=== PATIENT | male | born 2000 | race Caucasian/White ===

== ENCOUNTER 2024-10-15 15:40 | Emergency (ER) | payer OTHER, BC, SELFPAY ==
[2024-10-15 15:54] VITALS: BP 121/88; PULSE 114; RESP 16; TEMP 36.9; O2SAT 100
--- NOTE | 2024-10-15 16:00 | ED_ITS ---
HPI - Head Injury General Chief complaint: Head Injury Stated complaint: HEAD INJURY Time Seen by Provider: 10/15/24 16:00 Source: patient, RN notes reviewed and old records reviewed Mode of arrival: ambulatory Limitations: no limitations History of Present Illness HPI Narrative: 24 year old male accompanied by samuel presents to [facility] care with complaints of falling out of porch like swing and hitting his head on the rocks in the occipital area with some tenderness noted on palpation to area around 1400 today.. Patient reports that he does not recall any events of falling out of the swing or any events from yesterday or earlier today. His fiance says he seemed disoriented when he stood up after falling. She reports that she doesn't think he had any LOC but unsure, patient is not on any anticoagulants. Patient states some headache pain denies any nausea or known vomiting, alert and oriented X3 but recalls Biden as President.Patient has superficial abrasions to bilateral upper arms from his fall MD Complaint: head injury Onset (ago): hour(s) (2 hours) Arrival Conditions: other (ambulatory) Place: outdoors Loss of Consciousness: unsure Location of injury: occipital (head) Severity: moderate Associated symptoms: amnesia and other (forgetful, headache ) Related Data Home Medications ?Medication ?Instructions ?Recorded ?Confirmed ?Last Taken ?Type No Home Medications 10/15/24 10/15/24 Unknown History Allergies Allergy/AdvReac Type Severity Reaction Status Date / Time No Known Allergies Allergy Verified 10/15/24 15:55 Review of Systems Review of Systems: CONSTITUTIONAL: Denies fever, chills, or sweats. EYES: Denies visual changes, redness, or discharge. ENT: Denies rhinorrhea, congestion, sore throat, or otalgia. CARDIOVASCULAR: Denies chest pain, palpitations, or edema. RESPIRATORY: Denies cough or dyspnea. GASTROINTESTINAL: Denies abdominal pain, nausea, vomiting, or diarrhea. GENITOURINARY: Denies dysuria or hematuria. SKIN: Denies rash or itching. abrasions to bilateral upper arms from fall MUSCULOSKELETAL: Denies back pain, joint pain, or myalgia. NEUROLOGIC: states headache back of head, no numbness, or weakness. PSYCHIATRIC: Denies anxiety or depression. All systems reviewed & are unremarkable except as noted in HPI and below [facility] Social History Social History (Updated 10/15/24 @ 17:44 by Fior Lu NP) Smoking status: Never smoker Alcohol intake: current Alcohol use details: social Substance use type: does not use Gender identity (if verbalized by the patient): Male Comments At time of signature, agree with nursing past medical, surgical, social and family history. There is no relevant family history pertinent to the presenting complaint Exam Narrative: GENERAL: Well-appearing, well-nourished, and in no acute distress. HEAD: Normocephalic, atraumatic some tenderness on palpation to occipital area on back of scalp, moves al extremities well. EYES: PERRLA and EOMI. no nystagmus ENT: Nares clear, no rhinorrhea or epistaxis. Mucous membranes moist. NECK: Supple. no lymphadenopathy CHEST: Clear to auscultation. No respiratory distress. no cough noted SAO2 100% on room air HEART: Regular rate and rhythm. No murmur heard. Normal peripheral pulses. ABDOMEN: Soft, nontender, nondistended, normal active bowel sounds. EXTREMITIES: Normal range of motion. No edema. SKIN: Warm, dry, no rash. NEURO: No focal deficits. Alert and oriented x3 can't recall events of yesterday or today, does not recall falling out of swing and hitting head, Appears alert and oriented except for stating Biden as president..cranial nerves intact with no deficit noted. Course Course Emergency Course: Patient is aware of diagnosis, understands and agrees to treatment plan.? Anticipatory guidance given.? Patient agrees to follow-up as directed and is aware of reasons to seek care at the emergency department. Portions of this record may have been created with voice recognition software Level of Care: Express Care Visit Vital Signs Vital signs: Vital Signs Temperature 36.9 C 10/15/24 15:54 Pulse Rate 114 H 10/15/24 15:54 Respiratory Rate 16 10/15/24 15:54 Blood Pressure 121/88 10/15/24 15:54 Pulse Oximetry 100 10/15/24 15:54 Temperature 36.9 C 10/15/24 15:54 Pulse Rate 114 H 10/15/24 15:54 Respiratory Rate 16 10/15/24 15:54 Blood Pressure 121/88 10/15/24 15:54 Pulse Oximetry 100 10/15/24 15:54 Reviewed Transfer Transfered to: [place] Transportation: Other (private car) Transfer rationale: head injury with stated amnesia Accepting physician: Mathew Transfer comments: transfer per private car MDM - Head Injury MDM Narrative Medical decision making narrative: [id number] call placed to ED and spoke with Jeri CINTRON with condition update, VS and PMH reviewed with Dr Carmona accepting for transfer. Differential Diagnosis Differential diagnosis: Likely concussion without loss of consciousness, closed head injury, postconcussion syndrome and other (memory loss with headache) Medical Records Attestation: I reviewed the patient's medical records. 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
== END 2024-10-15 16:07 | disposition short-term general hospital (02) ==
PROVIDERS: Emergency Provider Registered Nurse
DX: S09.90XA Unspecified injury of head, initial encounter (principal); W17.89XA Other fall from one level to another, initial encounter
CPT/HCPCS: 99213; G0463

== ENCOUNTER 2024-10-15 16:21 | Emergency (ER) | payer BC, SELFPAY ==
--- NOTE | ~2024-10-15 | CT_ITS ---
Small bowel dilatation CT brain wo con Ordering provider: Joana Jaimes PA-C History: 24 years Male with . head injury . Comparison: None. Technique: CT of the head without contrast. Radiation reduction technique utilized. The dose-length product was 605.33 mGy-cm. FINDINGS: BRAIN PARENCHYMA AND CSF SPACES: No midline shift, mass effect or hemorrhage. The brain parenchyma a nd CSF spaces are otherwise normal. VISUALIZED PARANASAL SINUSES: Left maxillary sinus disease. Right ethmoid sinus disease. MASTOIDS: Well aerated. BONES: The bones appear intact. SOFT TISSUES: Visualized nasopharynx is normal. Superficial soft tissues are normal. IMPRESSION: No acute intracranial findings. Reviewed, dictated and finalized at location A.
--- NOTE | ~2024-10-15 | CT_ITS ---
CT cervical spine wo con Ordering provider: Joana Jaimes PA-C History: . head injury . Comparison: None. Technique: CT of the cervical spine was performed without contrast. Sagittal and coronal reformatted images were also obtained and reviewed. Automated exposure control and iterative reconstruction pipo hnique were employed. The dose-length product was 466.25 mGy-cm. FINDINGS: VERTEBRAE: No subluxation or acute fracture. The occipital condyles are intact. Bifid posterior arch of C1 is noted. DISC SPACES: Normal. PARASPINOUS SOFT TISSUES: Normal. IMPRESSION: No acute osseous abnormality cervical spine. Reviewed, dictated and finalized at location A.
--- OUTSIDE RECORDS SUMMARY | 2024-10-15 16:23 | XMS_ITS | Continuity of Care Document ---
Author Name [employer] Organization [employer] Care Team Providers Care Dye Jig Operator Name Role Phone [employer] Unavailable Unavailable Problems Combined list of problems from Department of Defense and Veterans Affairs facilities. It does not include entries that were removed or entered in error. 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 It does not include entries that were removed or entered in error. Substance Category Reaction Severity Reaction type Status Date Reported Comments Source No Known Allergies Drug allergy (disorder) active 10/20/2017 [place] [address] Immunizations Combined list of available immunizations from the Department of Defense and Veterans Affairs facilities. Immunization Series Date Given Administered By Site Reaction Lot Number CVX Code Drug Straw Hat Brusher Status Comments Source Influenza, injectable, quadrivalent, preservative free 0 2021 [id number] SmithKline (SKB) complet ed Influenza , injectabl e, quadrival ent, preservat latasha free [facility] influenza, injectable, quadrivalent- pf 2020 [id number] 150 sanofi pasteur complet ed influenza , injectabl e, quadrival ent-pf 04/26/21 Given Ambulat ory Pharmac y Influenza, injectable, quadrivalent, preservative free 1 2020 [id number] 150 Sanofi Pasteur (PMC) complet ed Influenza , injectabl e, quadrival ent, preservat latasha free [facility] COVID Vaccine Moderna 2020 [id number] complet ed COVID Vaccine Moderna 09/03/20 Given Ambulat ory Pharmac y SARS-COV-2 (COVID-19) vaccine, mRNA, spike protein, LNP, preservative free, 100 mcg or 50 mcg dose 2 2020 [id number] 207 Moderna [employer] (MOD) complet ed SARS-COV- 2 (COVID-19 ) vaccine, mRNA, spike protein, LNP, preservat latasha free, 100 mcg or 50 mcg dose DoD COVID Vaccine Moderna 2020 zzLef t Arm [id number] complet ed COVID Vaccine Moderna 08/06/20 Given Ambulat ory Pharmac y SARS-COV-2 (COVID-19) vaccine, mRNA, spike protein, LNP, preservative free, 100 mcg or 50 mcg dose 1 2020 LIZBETH JEANICA [id number] 207 Moderna [employer], [place]. (MOD) complet ed SARS-COV- 2 (COVID-19 ) vaccine, mRNA, spike protein, LNP, preservat latasha free, 100 mcg or 50 mcg dose DoD influenza virus vaccine, inactivated 2019 [id number] Seqirus complet ed influenza virus vaccine, inactivat ed 03/28/20 Given Ambulat ory Pharmac y Influenza, injectable, Madin Teena Canine Kidney, quadrivalent with preservative 0 2019 [id number] 186 Seqirus (SEQ) comple t ed Influenza , injectabl e, Madin Teena Canine Kidney, quadrival ent with preservat latasha DoD anthrax vaccine 2019 [id number] Emergent Biosolutions complet ed anthrax vaccine 12/06/19 Given Ambulat ory Pharmac y Human Papillomaviru s 9-valent vaccine 2019 [id number] 165 Merck & Company Inc complet ed Human Papilloma virus 9-valent vaccine 12/06/19 Given Ambulat ory Pharmac y anthrax vaccine 2 2019 [id number] 24 Emergent [employer] [place] ([facility]) complet ed anthrax vaccine DoD Human Papillomaviru s 9-valent vaccine 1 2019 [id number] 165 Merck (MSD) complet ed Human Papilloma virus 9-valent vaccine DoD typhoid Vi capsular polysaccharid e vac 2019 [id number] 101 sanofi pasteur complet ed typhoid Vi capsular polysacch aride vac 10/27/19 Given Ambulat ory Pharmac y anthrax vaccine 2019 [id number] 24 Emergent Biosolutions complet ed anthrax vaccine 10/27/19 Given Ambulat ory Pharmac y anthrax vaccine 1 2019 [id number] 24 Emergent [employer] [place] ([facility]) complet ed anthrax vaccine DoD typhoid Vi capsular polysaccharid e vaccine 1 2019 [id number] 101 Sanofi Pasteur (PMC) complet ed typhoid Vi capsular polysacch aride vaccine DoD influenza, injectable, quadrivalent 2018 [id number] 158 Seqirus complet ed influenza , injectabl e, quadrival ent 01/27/19 Given Ambulat ory Pharmac y hepatitis B pediatric/ado lescent 2018 [id number] 08 GlaxoSmithKli ne complet ed hepatitis B pediatric /adolesce nt 01/27/19 Given Ambulat ory Pharmac y hepatitis B vaccine, pediatric or pediatric/ado lescent dosage 3 2018 [id number] 08 SmithKline (SKB) complet ed hepatitis B vaccine, pediatric or pediatric /adolesce nt dosage DoD influenza, injectable, quadrivalent, contains preservative 1 2018 [id number] 158 Seqirus (SEQ) complet ed influenza , injectabl e, quadrival ent, contains preservat latasha DoD hepatitis B pediatric/ado lescent 2017 [id number] 08 GlaxoSmithKli ne complet ed hepatitis B pediatric /adolesce nt 11/28/17 Given Ambulat ory Pharmac y hepatitis B vaccine, pediatric or pediatric/ado lescent dosage 1 2017 [id number] 08 SmithKline (SKB) complet ed hepatitis B vaccine, pediatric or pediatric /adolesce nt dosage DoD hepatitis B pediatric/ado lescent 2017 [id number] 08 GlaxoSmithKli ne complet ed hepatitis B pediatric /adolesce nt 10/19/17 Given Ambulat ory Pharmac y hepatitis B vaccine, pediatric or pediatric/ado lescent dosage 1 2017 [id number] 08 SmithKline (SKB) complet ed hepatitis B vaccine, pediatric or pediatric /adolesce nt dosage DoD poliovirus vaccine, inactivated 2017 [id number] 10 sanofi pasteur complet ed polioviru s vaccine, inactivat ed 10/13/17 Given Ambulat ory Pharmac y adenovirus vaccine, live 2017 [id number] 143 Teva Pharmaceutica ls complet ed adenoviru s vaccine, live 10/13/17 Given Ambulat ory Pharmac y meningococcal A,C,Y,W-135 (MCV4P) 2017 [id number] 114 sanofi pasteur complet ed meningoco ccal A,C,Y,W-1 35 (MCV4P) 10/13/17 Given Ambulat ory Pharmac y tetanus, diphtheria, acellular pertu is 2017 [id number] 115 Diversied Arts And EntertainmentKli nj complet ed tetanus, diphtheri a, acellular pertussis 10/13/17 Given Ambulat ory Pharmac y influenza virus vaccine, inactivated 2017 [id number] 88 Seqirus complet ed influenza virus vaccine, inactivat ed 10/13/17 Given Ambulat ory Pharmac y poliovirus vaccine, inactivated 1 2017 [id number] 10 Sanofi Pasteur (PMC) complet ed polioviru s vaccine, inactivat ed DoD meningococcal polysaccharid e (groups A, C, Y and W-135) diphtheria toxoid conjugate vaccine (MCV4P) 1 2017 [id number] 114 Sanofi Pasteur (PMC) complet ed meningoco ccal polysacch aride (groups A, C, Y and W-135) diphtheri a toxoid conjugate vaccine (MCV4P) DoD tetanus toxoid, reduced diphtheria toxoid, and acellular pertu is vaccine, adsorbed 1 2017 [id number] 115 Tactile Systems Technology (SKB) complet ed tetanus toxoid, reduced diphtheri a toxoid, and acellular pertussis vaccine, adsorbed DoD Adenovirus, type 4 and type 7, live, oral 1 2017 [id number] [place] [address] ([facility]) complet ed Adenoviru s, type 4 and type 7, live, oral DoD Influenza, injectable, Madin Teena Canine Kidney, quadrivalent with preservative 1 2017 [id number] 186 Seqirus (SEQ) comple t ed Influenza , injectabl e, Madin Ralston Canine Kidney, quadrival ent with preservat latasha DoD measles virus vaccine 0 2017 05 () Not Given measles virus vaccine DoD rubella virus vaccine 0 2017 06 () Not Given rubella virus vaccine DoD mumps virus vaccine 0 2017 07 () Not Given mumps virus vaccine DoD varicella virus vaccine 0 2017 21 () Not Given varicella virus vaccine DoD hepatitis A vaccine, adult dosage 0 2017 52 () Not Given hepatitis A vaccine, adult dosage DoD Results Combined list of recent chemistry, hematology and other laboratory results from Department of Defense and Veterans Affairs, ranging from 15 months to all on record, depending upon the facility. Order Name Results Value Reference Range Date Interpretation Specimen Comments Source Infectiou s Disease HIV-1/O/2 Non-Reac tive 1 (07/21/24 9:39 AM) 07/21 N Interpretiv e Data: INTERPRETAT ION: This method is a screening procedure for the detection of HIV p24 Antigen and Antibodies to HIV-1, including Group O, and/or HIV-2. NON-REACTIV E: HIV-1 antigen and HIV-1 / HIV-2 antibodies were not detected. No laboratory evidence of HIV infection. A negative test result does not exclude the possibility of exposure to or infection with HIV. HIV antibodies and/or p24 antigen may be undetectabl e in some stages of the infection and in some clinical conditions. If acute HIV infection is suspected, consider submitting another specimen to a reference laboratory for HIV-1 RNA. SCREEN REACTIVE - CONFIRMATIO N TO FOLLOW: Possible presence of HIV-1antibo dies, HIV-2 antibodies and/or HIV-1 p24 antigen. Specimen will reflex to the confirmatio n testing that fulfills the Center for Disease Control and Prevention' s HIV diagnostic algorithm. Refer to [facility] Lab Guide for additional information : [email or web address] x Testing performed by [employer] r[facility] kwok. [facility] EP[facility] Miscellan eous Sendouts Repository Sample Received (07/21/24 9:39 AM) 07/21 N [facility] Encounters Combined list of: 1) Encounters from Department of Veterans Affairs facilities going backup to the last 18 months, not all VA inpatient encounters are included; 2) Encounters from the Department of Defense facilities going backup to 280 months. Location Location Details Encounter Type Encounter Number Reason For Visit Attending Provider ADM Date DC Date Status Disposition [place] [address](Hea ring Conservat ion, BMT) OUTPATIENT [id number] ANNY SHELTON E 10/18 Released w/o Limitations [facility] [place] [address](H earing Conserv ation, BMT) [place] [address](Tra [facility]) OUTPATIENT [id number] Notes Entered by: Rachael CADENA 20 Oct 2017 1052 ------- ------- ------- ------- -- Strep Prophyl RL Gonzalez 10/20 Released w/o Limitations [facility] [place] [address](T [facility]) OUTPATIENT [id number] Initial PHA LIVAN BRITO 04/28 Released w/o Limitations [address] [place] [address])([facility]) [address] [place] [address])([facility]) OUTPATIENT [id number] Notes Entered by: HO BLAND 27 Oct 2019 1455 ------- ------- ------- ------- -- HO GROVES 10/26 Released w/o Limitations [address] [place] [address])([facility]) [address] [place] [address])(Yi demic Virus) OUTPATIENT [id number] SATHYA WILSON 12/27 Released w/o Limitations [address] [place] [address])(P andemic Virus) Theater Facility OUTPATIENT [id number] Theater Provider 02/25 Released w/o Limitations [facility] OUTPATIENT [id number] Theater Provider 02/25 Released w/o Limitations Theater [facility] Theater [facility] OUTPATIENT [id number] Theater Provider 04/23 Released w/o Limitations Theater Facilit y [address] [place] [address])([facility]) TELE CONSULT [id number] Notes Entered by: MARLO JEAN 14 May 2020 1235 ------- ------- ------- ------- -- FRANK Fields 05/14 Other Not Elsewhere Classified [address] [place] [address])([facility]) [address] [place] [address])(Aud iology Procedure s) OUTPATIENT [id number] Notes Entered by: Jennie LANDAVERDE 28 May 2020 0910 ------- ------- ------- ------- -- ARLEY EVANS 05/28 Released w/o Limitations [address] [place] [address])(A udiolog y Procedu res) [address] [place] [address])(War rior Op Med Cln Tm A Ad) OUTPATIENT [id number] SHPE [id number] EBONY ASHER 06/03 Released w/o Limitations [address] [place] [address])(W arrior Op Med Cln Tm A Ad) [address] [place] [address])([facility]) OUTPATIENT [id number] Notes Entered by: Elias MAHARAJ 06 Aug 2020 1038 ------- ------- ------- ------- -- HECTOR Tenorio 08/06 Released w/o Limitations [address] [place] [address])([facility]) [address] [place] [address])([facility]) OUTPATIENT [id number] Notes Entered by: Elias MAHARAJ 11 Aug 2020 1112 ------- ------- ------- ------- -- phaq and HECTOR Tenorio 08/11 Released w/o Limitations [address] [place] [address])(06 [facility]) [address] [place] [address])([facility]) OUTPATIENT [id number] AUDIO AM - BUZZ DORADO 07/27 Released w/o Limitations [address] [place] [address] [facility]) [address] [place] [address] Alv[facility])([facility]) OUTPATIENT [id number] Notes Entered by: Elias MAHARAJ 27 Jul 2021 1721 ------- ------- ------- ------- -- HECTOR Campbell 07/27 Released w/o Limitations [address] [place] [address] Alvino [facility] ([facility]) [address] [place] [address] Alvino [facility])([facility]) OUTPATIENT [id number] Notes Entered by: Elias MAHARAJ 30 Aug 2022 1618 ------- ------- ------- ------- -- phaq HECTOR MAHARAJ 08/30 Released w/o Limitations [address] [place] [address] Alvino [facility])(06 [facility]) 8224R-126 G Outside Documentat ion Only [id number] 02/02 Discharge Disposition: Home or Self Care 8224R-1 26 MARINE 8224R-126 MDG Outside Documentat ion Only [id number] 02/02 Discharge Disposition: Home or Self Care 8224R-1 26 MARINE 8224R-126 MDG Outpatient [id number] HECTOR PHIPPS 06/12 Discharge Disposition: Home or Self Care 8224R-1 26 G 8224R-126 MDG Outpatient [id number] HECTOR PHIPPS 07/21 Discharge Disposition: Home or Self Care 8224R-1 26 G 8224R-126 MDG Clinic [id number] HECTOR PHIPPS 08/07 Discharge Disposition: Home or Self Care 8224R-1 26 MDG Procedures Combined list of: 1) Procedures from Department of Veterans Affairs facilities going back [facility] to [facility], not all VA non-surgical procedures are included; 2) All procedures from the Department of Defense facilities. Procedure Procedure Type Code Date Perfomer Comments Sourc e No data available for this section Ambulatory Pharmacy PURE TONE AUDIOMETRY (THRESHOLD), AUTOMATED; AIR ONLY 2 DoD WAIVER SERVICES; NOT OTHERWISE SPECIFIED (NOS) 1 [facility] PSYCHOLOGICAL OR NEUROPSYCHOLOGICAL TEST ADMINISTRATION, WITH SINGLE AUTOMATED, STANDARDIZED INSTRUMENT VIA ELECTRONIC PLATFORM, WITH AUTOMATED RESULT ONLY 0 DoD Social History Combined list of available smoking, tobacco, and other social history from Department of Defense and Veterans Affairs facilities. Social History Type Response Date Comment Sourc e Sex Representation Male (finding) 08/28/2021 Un known Organization Sexual Orientation Ambula tory Pharmacy Gender identity Ambulator y Pharmacy This section is an empty social history section. DoD Assessment and Plan Combined list of future care activities from Department of Defense and Veterans Affairs facilities (e.g., assessment and plan notes, appointments, orders, and referrals). Additional future care activities may be listed in the Plan of Care section. 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 Patient s PHAQ responses suggest Routine i tems requiring action. Retention Waiver: No Profile: No Medications: N one reported Medication List Active Medications No Active Medications Found Medications Inactivated in the Last 72 Hours No medications found. Allergies: No Known Allergies Does central service technician need Annual Mental Health review? YES VA Disability Rating: No If, Yes please update below. 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 Report complete. PHAQ ready for PCM review and signature. 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 Patient s PHAQ responses suggest Priority items requiring immediate action. Member is PRIORITY for f inancial, family/relationship, sleep Retention Waiver: N o Profile: N o Medications: Medication List Active Medications No Active Medications Found Medications Inactivated in the Last 72 Hours No medications found. Allergies: N o Known Allergies Does central service technician need Annual Mental Health review? N O VA Disability Rating: N o I f, Yes please update below. 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 Member is a PRIORITY for financial, family/relationship, and sleep but is not getting help for these issues. He is due to complete his MHA. 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 Member experienced persistent or recurring noises in head or ears. Member reports no surgeries since last PHA, no allergies, and does not wear corrective lenses. Member denies seeking/getting care for any mental health concerns. Member denies taking any prescribed or OTC medications, and does not drink alcohol. Member endorses taking Protein supplements, Multi-vitamins, and Vitamin D. Member endorses excellent health with no c/o pain. Will schedule member for F2F appt with Lt Col Maharaj. Left a voicemail for member to return my call. PHAQ ready for PCM review and signature. *Insert Addendum Here: Addendum by HECTOR MAHARAJ on August 10, 2023 09:41 CDT PHAQ Completed in [facility], [id number] c opied below. Diagnosis is [id number] Medication reconciliation was accomplished. IMR requirements checked in [facility] (all GREEN). General c ounseling performed i n chart review. Denies SI/HI. All questions answered. Member has no n on emergent positive responses on P MONIQUE. I t has not inhibited member from performing their duties. Member is assumed fit for duty. Denies any other acute or chronic health concerns currently. Mental health resources to include the mental health clinic, [facility]OP, Information Engineer, and One [facility] discussed with patient v ia review. Recommend f/u with PCM for any new or ongoing m edical concerns. 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 Last Name: LINDA 2. First Name: ROSITA 3. Middle Name: AZAR 4. Assessment Date: 5. : 6. Age: 23 7. Gender: M 8. DoD ID Number: [id number] 9. Service Branch: [employer] 10. 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 Unit Name: 126 [employer]INTENA[employer]CE SQ 14. Duty Station/Location: [place] 15. C: [id number] 16. Is this your first Periodic Health Assessment (PHA)?: N 17. Are you enrolled in a secure messaging system with your health care provider?: 18. Current contact information: Preferred Method: Email 1 DSN: Day Time Phone: [phone] Night Time Phone: [phone] Email 1: [email or web address] Email 2: Address: [address] City: [place] State: [place] Zip Code: [id number] 19. Point of contact who can always reach you: Name: Lexi Mixon Phone 1: [phone] Phone 2: EMAIL: Address: [address] City: [place] State: [place] Zip Code: [address] II. DEPLOYMENT INFORMATION (DEP) 1. [ 1 ] Total number of deployments in the PAST 5 YEARS 2. [ [place] ] Primary country of last deployment 3. [ ] Date departed theater 4. [ Y ] Are you going to deploy within the NEXT 120 DAYS? III. 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 [ No ] Does your specialty require an operational duty physical exam? 4. [ Yes ] Are you currently enrolled in a medical surveillance/occupational health program?: Yes IV. MEDICAL CONDITIONS (ARASH): 1. Since your last PHA, have you experienced any of the following health conditions, and if so, what is your status? [ Persistent or recurring noises in head or ears ] Conditions with no medical care [ ] Conditions with medical care, but no longer under treatment [ ] Conditions with medical care, and NOW under treatment 2. Since your last PHA, have you experienced any of the following health conditions, and if so, what is your status? [ ] Conditions with no medical care [ ] Conditions with medical care, but no longer under treatment [ ] Conditions with medical care, and NOW under treatment 3. For any condition marked YES in question 1 or 2, are you currently on any profile or limited duty for that condition? [ ] Conditions 4. [ Yes ] Have you been based or stationed at a location where an open burn pit was used? 5. [ Not Sure ] Have you been exposed to toxic airborne chemicals or other airborne contaminants? 6. [ No ] Are you enrolled in the Airborne Hazards and Open Burn Pit Registry? 7. [ Y ] Federal law requires eligible members to enroll in the Airborne Hazards and Open Burn Pit Registry or opt-out. If eligble, choose one: 8. Have you had any surgery since your last PHA?: No 10.a. [ No ] Since your last PHA, has a health care provider recommended surgery(s) that you have not had? 11.a. [ No ] Do you currently require hearing aids, special medical supplies, CPAP, adaptive equipment, assistive technology devices, and/or other special accommodations? 12.a. [ No ] Do you have a waiver or profile for any part of your Service's physical fitness test? 13.a. [ No ] Do you have any problems wearing a gas mask, ballistic helmet, body armor, and/or chemical/biological protective garments? 14.a. [ No ] Have you ever been told by a health care provider that you SHOULD NOT receive an immunization for medical reasons? 15.a. [ No ] Do you have a permanent profile or an Assignment Limitation Code C? 16.a. [ No ] Are you on a temporary profile or limited duty? 17. [ 0 ] During the PAST 2 years, how many times have you been placed on a temporary profile or on limited duty? V. INDIVIDUAL MEDICAL READINESS (IMR) 1. [ No ] Do you have any allergies? 3. [ Not required ] Do you have red medical warning dog tags? 4. [ No ] Do you wear corrective lenses? . BEHAVIORAL HEALTH (MHA) 1. a. [ financial, family/relationship, sleep financial, family/relationship, sleep ] Over the PAST MONTH, what major life stressors have you experienced that are a cause of significant concern or make it difficult for you to do your work, take care of things at home, or get along with other people (for example, serious conflicts with others, relationship problems, or a legal, disciplinary or financial problem)? 1. b. [ No ] Are you currently in treatment or getting professional help for this concern? 2. a. [ No ] In the PAST YEAR did you receive care for any mental health condition or concern such as, but not limited to post traumatic stress disorder (PTSD), depression, anxiety disorder, alcohol abuse or substance abuse? 3. [ None ] What prescription or over-the counter medications (including herbals/supplements) for sleep, pain, combat stress, or a mental health problem are you CURRENTLY taking? 4. a. [ No ] In the past 12 months, have you gambled? 5. a. [ Never ] How often do you have a drink containing alcohol? 6. Have you ever had any experience that was so frightening, horrible, or upsetting that in the PAST MONTH, you: 6. a. [ No ] Have had nightmares about it or thought about it when you did not want to? 6. b. [ No ] Tried hard not to think about it or went out of your way to avoid situations that remind you of it? 6. c. [ No ] Were constantly on guard, watchful or easily startled? 6. d. [ No ] Laie numb or detached from others, activities, or your surroundings? 6. e. [ Not answered ] Laie guilt or unable to stop blaming yourself or others for the event(s) or any problems the event(s) may have caused? 7. Over the LAST 2 WEEKS, how often have you been bothered by the following problems? 7. a. [ Not at all ] Little interest or pleasure in doing things 7. b. [ Not at all ] Feeling down, depressed, or hopeless 8. [ No ] Would you like to schedule an appointment with a health care provider to discuss any health concern(s)? 9. [ No ] Are you interested in receiving information or assistance for a stress, emotional or alcohol concern? 10. [ No ] Are you interested in receiving assistance for a family or relationship concern? 11. [ No ] Would you like to schedule a visit with a sail maker, mental health care provider, or a community support counselor? VII. FAMILY HISTORY AND LIFESTYLE (LIF) 1. [ Excellent ] Overall, how would you rate your health during the PAST MONTH? 2. [ Heart-related conditio ] Member indicates that family members have the following problems 4. 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 [ Yes ] I participate in moderate intensity physical activites at least 2.5 hours, or a combination of moderate and vigorous aerobic activites, for at least 75 minutes per week. 7. In a typical week, I do physical activities specifically designed to STRENGTHEN my muscles: [ 5 ] Day(s) per week 8. [ None ] What prescriptions or [id number] medications are you CURRENTLY taking for health problems on a ROUTINE BASIS? 9. Which of the following products have you taken since your last PHA: Protein Supplements/Creatine: Once a day Multi-Vitamins: Once a day Vitamin D: Less than once a month 11. Think about the PAST 30 DAYS. How often did you eat/drink the following foods/beverages? [ 2 servings per day ] Fruits [ 1 serving per day ] Vegetables [ 3 to 6 servings per week ] Starchy Vegetables [ 3 to 6 servings per week ] Whole Grains [ 1 or 2 servings per week ] Dairy and Calcium Containing Foods [ Rarely or Never ] Fish [ 3 or more servings per day ] Lean Protein [ Rarely or Never ] Sugar-Sweetened Beverages 12. [ No ] Have you had a cholesterol check by a health home health care respiratory therapist within the PAST 5 YEARS? 13.a. In the PAST 30 DAYS, which of the following products have you used on at least one day? None 15. Which of the following best describes your past tobacco use? I have never used tobacco products. 16. [ No ] Are you regularly exposed to secondhand smoke? 17. [ 5 to less than 7 hours ] During the LAST 2 WEEKS, how many hours of sleep did you get on most days? 18. [ No ] During the LAST 2 WEEKS, have you felt impaired or unable to adequately perform due to sleepiness or poor quality sleep? 19. [ No ] Have you had any unexplained weight loss or gain since your last PHA? 20. Member is not at risk for sexually transmitted infections. 22. Since your last PHA, what, if anything, have you and your partner used to keep from getting ? [ Condoms ] I am actively taking steps to prevent , including 23. [ No ] In the last year, have you or your partner had a scare, where you were not trying to get but were worried enough to use a home test? IX. RESERVE COMPONENT (RES) 1. [ No ] Do you have an injury, illness, Or disease which was incurred or aggravated while in a duty status since your last PHA? 4. [ Yes - ] Are you currently coverered under a health insurance policy? 5.a. [No, I have never applied for Worker's Compensation ] Do you have any current physical or mental health limitations related to a Worker's Compensation claim? 6. [ No ] Have you applied for or have you received a VA disability rating? X. OTHER MEDICAL (OTH) 1. [ 0 ] Rate the amount of pain you have had, on average, over the PAST 24 HOURS 3. [ No ] Since your last PHA, have you received care or treatment for any medical and/or mental health condition(s) from a civilian or non- facility? 5. Member acknowledged responsibility for reporting health issues. 7. [ No ] Woud you like to schedule an appointment with a health care provider to discuss any health concerns? XI. SEPARATION AND JAIL 1. 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 PART B. RECORD REVIEW AND RECOMMENDATIONS I. RECORD REVIEWER INFORMATION 1. Last Name: DARIEN 2. First Name: PRECIOUS 3. Middle Name: Kathi 4. Service Branch: [employer] 5. 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 EMAIL: [email or web address] 8. Facility: [address] [facility] 9. Unit: [facility] 10. Address: [address] [place] [address]. State: [facility]. Zip Code: [address] 13. 14. Date Record Review: II. MEDICAL SCREENING 1. [ ] Date of swat team member's most recent PHA 2. [ 5 feet 10 inches Date: ] swat team member's most recently documented height 3. [ 188 pounds Date: ] swat team member's most recently documented weight 4. [ 101/58 Date: ] swat team member's most recently documented blood pressure reading 5. [ No ] Does the swat team member have a history of abnormal blood pressure since their last PHA? 6. [ Yes ] Does the swat team member have a laboratory test of sickle cell trait documented in their permanent medical record? 7. [ No Cholesterol Test Documented ] What is the date of the swat team member's most recently documented cholesterol test? 9. [ Protein Supplements Multi-vitamins Vitamin D ] List of swat team member's active medications listed in their permanent medical record 10. [ No ] Is there a discrepancy between the active medication record review and the swat team member's self-reported list of medications? 11. [ No Outside Care Documented ] List documented significant care the swat team member has received since their last PHA from a provider OUTSIDE the Health System 12. [ No ] Is there a discrepancy between the swat team member's list of OUTSIDE care (from OT5), and the OUTSIDE care found in the record? 13. [ No Inside Care Documented ] List documented significant care the swat team member has received since their last PHA from a provider INSIDE the Health System 15. [ Not Answered ] Confirm that vaccine exemptions are listed in the medical record for each vaccine listed III. OCCUPATION-SPECIFIC EXAMINATIONS 2. [ ] When was the swat team member's most recently documented evaluation? IV. FAMILY HISTORY AND LIFESTYLE 1. [ Yes ] Does the [id number] reflect the swat team member's reported family history? . DEPLOYMENT-RELATED HEALTH ASSESSMENTS 2. [ No ] Has the swat team member completed the Pre-Deployment Health Assessment (DD Form 2795 for their upcoming deployment? VII. INDIVIDUAL MEDICAL READINESS 1. [ No ] Does the swat team member have an Assignment Limitation Code C? 3. [ Classification: 1 ] Most recently documented dental exam 4. [ Yes ] Is the swat team member current on all required immunizations in the immunization tracking system? 6. Does the swat team member have the following laboratory tests documented in their permanent medical record? [ Yes ] HIV test within the PAST 24 months [ Yes ] G6PD results on file [ Yes ] Blood type and Rh on file [ Yes ] DNA test on file IX. ADDITIONAL RECORD REVIEWER COMMENTS 1. This record review does NOT have a need for provider notification or referral.2. Additional comments about this record review that need to be forwarded to the Health Multiple Slide Operator completing PART C: PRIORITY PHAQ completed. Member is a PRIORITY for financial, family/relationship, and sleep but is not getting help for these issues. He is due to complete his MHA. 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 Member experienced persistent or recurring noises in head or ears. Member reports no surgeries since last PHA, no allergies, and does not wear corrective lenses. Member denies seeking/getting care for any mental health concerns. Member denies taking any prescribed or OTC medic Date Record Review Completed: PART C. HEALTH CARE PROVIDER I. MENTAL HEALTH ASSESSMENT (MHA) PROVIDER INFORMATION 1. Last Name: CHOCO 2. First Name: HECTOR 3. Middle Name: Albin 4. Service Branch: [employer] 5. [facility]: [facility] 6. 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 EMAIL: [email or web address] 8. Facility: [address] [facility] 9. Unit: [facility] 10. Address: [address] [place] [address] 11. State: [place] 12. Zip Code: [address] 13. Phone: [phone] 14. Date HCP Review initiated: 1. Member marked that they have a concern or a difficulty with a major life stressor: financial, family/relationship, sleep Additional info: Referral is not indicated because there is no significant impairment. 2. Address concerns identified on member questions 2 and 3. History of mental health care: N/A Member's response: Provider's comments: Medications: N/A Member's response: Provider's comments: 3. Member's AUDIT-C screening score was 0. (nothing required) 4. Member did not livan yes on two or more of questions 6a through 6e. 5. Member did not livan More than half the days or nearly every day on question 7a or 7b. 6. Suicide risk evaluation. 6. a. Ask: Over the past month, have you wished you were or wished you could go to sleep and not wake up?: No 6. b. Ask: Have you actually had any thoughts of killing yourself?: No 6. f. 1. Ask: In you lifetime, have you done anything, started to do anything, or prepared to do anything to end your life?: No 6. g. Further risk assessment comments: 7. Member states that they have not had thoughts or concerns over the past month that they might hurt or lose control with someone. 9. Summary of Provider's identified concerns needing referrals: None 11. Comments: 13. Supplemental services recommended/information provided: No supplemental services required Date MHA Certified: III. PERIODIC HEALTH ASSESSMENT (PHA) PROVIDER INFORMATION 1. Last Name: CHOCO 2. First Name: HECTOR 3. Middle Name: Albin 4. Service Branch: [employer] 5. Status: Traditional [facility] 6. 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 EMAIL: [email or web address] 8. Facility: [address] [facility] 9. Unit: [address] [facility] 10. Address: [address] [place] [address] 11. State: [place] 12. Zip Code: [address] 13. Phone: [phone] 14. Date HCP Review initiated: IV. PERIODIC HEALTH ASSESSMENT PROVIDER RECOMMENDATIONS and REFERRALS 1. Provider concerns with this assessment: No issues or concerns identified V. SUMMARY AND COMMENTS 1. Additional information summarizing findings during the swat team member assessment: 2. Provider Comments: . INDIVIDUAL MEDICAL READINESS DISPOSITION DETERMINATION ARASH: Ready DEN: Ready IMM: Ready LAB: Ready ME: Ready IMR Status: Fully Medically Ready VII. SERVICE MEDICAL DEPLOYABILITY EVALUATION INDICATED Based on your review of all documentation, is the swat team member medically deployable without limitations? Reference Rafi 6490.07 Yes (swat team member DOES NOT currently have a medical condition that limits deployability) Date PHA Completed: END OF [id number] REPORT PROVIDER: LtCol Yee, Kierra SHEARER [employer] SFS Chief, Aerospace Medicine, [facility] [place] [employer] Email: [email or web address] COMM: [phone] DSN:[id number] FAX: [phone] Extracted from:Title: PRIORITY PHAQ Author: Precious Blood Date: 07/27/23 [facility] animal laboratory technician has completed annual PHA record review on 0 07/27/2023. Patient s PHAQ responses suggest Priority items requiring immediate action. Retention Waiver: N o Profile: N o Medications: Medication List Active Medications No Active Medications Found Medications Inactivated in the Last 72 Hours No medications found. Allergies: N o Known Allergies Does central service technician need Annual Mental Health review? N O VA Disability Rating: N o I f, Yes please update below. 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 Member is a PRIORITY for financial, family/relationship, and sleep but is not getting help for these issues. He is due to complete his MHA. 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 Member experienced persistent or recurring noises in head or ears. Member reports no surgeries since last PHA, no allergies, and does not wear corrective lenses. Member denies seeking/getting care for any mental health concerns. Member denies taking any prescribed or OTC medications, and does not drink alcohol. Member endorses taking Protein supplements, Multi-vitamins, and Vitamin D. Member endorses excellent health with no c/o pain. Will schedule member for F2F appt with Lt Col Maharaj. Left a voicemail for member to return my call. PHAQ ready for PCM review and signature. 10/15/2024 [id number] [facility] Functional Status Combined list of recent functional and cognitive assessments recorded at Department of Defense and Veterans Affairs (VA).VA Functional Ragan Measurement (FIM) Scale: 1 = Total Assistance (Subject = 0% +), 2 = Maximal Assistance (Subject = 25% +), 3 = Moderate Assistance (Subject = 50% +), 4 = Minimal Assistance (Subject = 75% +), 5 = Supervision, 6 = Modified Ragan (Device), 7 = Complete Ragan (Timely, Safely). Assessment Date/Time Source Assessment Type Assessment Skill Assessment Score Assessment Details No data available for this section
[2024-10-15 16:27] VITALS: BP 132/76; PULSE 97; RESP 18; TEMP 36.3; O2SAT 100
--- NOTE | 2024-10-15 16:33 | ED_ITS ---
HPI - Head Injury General Chief complaint: Head Injury Stated complaint: Head Injury Time Seen by Provider: 10/15/24 20:39 Focused HPI: 24-year-old male presents with his fiancee for head injury that occurred around 1:00 p.m. today. Patient's fiancee at bedside assist with history. States they were at a restaurant the patient was sitting on a swing when he lost his balance and fell backwards, hit the back of his head on rocks. She does not believe he lost consciousness. He stood up fairly quickly and was immediately confused. They went to urgent care and were redirected to the emergency department. The patient states he does not recall any events surrounding hitting his head or any events earlier today. He also does not recall going to urgent care, but does remember the car ride here. He denies vision changes, focal numbness or weakness, prior head injury or concussion, neck pain, back pain, nausea or vomiting, seizure-like activity, or other injuries acquired. He is not anticoagulated. He is reporting associated dizziness after the head injury without has since resolved. GENERAL: Well-appearing, well-nourished, and in no acute distress. GCS 15 HEAD: Normocephalic. Hematoma to the posterior scalp with very superficial abrasion, no active bleeding CHEST: Clear to auscultation. ?No respiratory distress. HEART: Regular rate and rhythm.? NEURO: ?Alert and oriented x4. Cranial nerves 2-12 intact. Strength 5/5 in BUE and BLE. Sensation intact throughout. Normal [id number]. No pronator drift. Patient screened in triage and initial orders placed.? ?Additional care and disposition to be based upon?diagnostic testing and treatment. Related Data Home Medications ?Medication ?Instructions ?Recorded ?Confirmed ?Last Taken ?Type No Home Medications 10/15/24 10/15/24 Unknown History Allergies Allergy/AdvReac Type Severity Reaction Status Date / Time No Known Allergies Allergy Verified 10/15/24 15:55 [facility] Social History Social History Smoking status: Never smoker Alcohol intake: current Alcohol use details: social Substance use type: does not use Gender identity (if verbalized by the patient): Male Course Vital Signs Vital signs: Vital Signs Temperature 97.3 F L 10/15/24 16:27 Pulse Rate 97 05/26/25 16:27 Respiratory Rate 18 10/15/24 16:27 Blood Pressure 132/76 10/15/24 16:27 Pulse Oximetry 100 10/15/24 16:27 Oxygen Delivery Room Air 10/15/24 16:27 Temperature 97.6 F 10/15/24 21:01 Pulse Rate 68 10/15/24 21:01 Respiratory Rate 16 10/15/24 21:01 Blood Pressure 120/76 10/15/24 21:01 Pulse Oximetry 97 10/15/24 21:01 Oxygen Delivery Room Air 10/15/24 16:27 Discharge Plan Discharge Clinical Impression: Concussion without loss of consciousness Patient Disposition: Home Condition: Stable Instructions: Concussion (ED), Post Concussion Syndrome (ED) Additional Instructions: RETURN IF SYMPTOMS ARE WORSENING , CALL YOUR FAMILY PHYSICIAN FOR APPOINTMENT, TAKE TYLENOL, IBUPROFEN NEEDED FOR ACHES AND PAIN, CONTINUE HOME MEDICATIONS. Patient Language: Uzbek Prescriptions: No Action No Home Medications Follow-up/Referrals: PHYSICIAN,ASW/ASUW TACTICAL AIR CONTROLLER [Primary Care Provider] - Ron Forde MD [Physician] - 10/18/24 Stand Alone Forms: Work/School Release IP
[2024-10-15 18:34] VITALS: BP 129/78; PULSE 68; RESP 16; TEMP 36.4; O2SAT 100
--- NOTE | 2024-10-15 20:39 | ED_ITS ---
HPI - Head Injury General Chief complaint: Head Injury Stated complaint: Head Injury Time Seen by Provider: 10/15/24 20:39 Source: patient Mode of arrival: ambulatory Limitations: no limitations History of Present Illness HPI Narrative: 24 YEARS OLD WHITE MALE CAME TO THE ED BY PRIVATE CAR COMPLAINING OF OCCIPITAL HEADACHE AFTER FALLING OUT OF A SWING ROUGHLY 3 FEET ABOVE THE GROUND WHILE SWINGING A SITTING POSITION. HE DENIES LOSS OF CONSCIOUSNESS, UNABLE TO RECALL THE EVENT. THIS HAPPENED AT 1:00 P.M. TODAY, 1 A1C THE PATIENT WAS 8:30 P.M.. AT THIS TIME PATIENT IS AWAKE, ALERT ORIENTED X4 FEELING MORE COHERENT MORE AWAKE DENYING ANY SYMPTOMS AT THIS TIME. HE DENIES ANY FEVER, CHILLS, NAUSEA, VOMITING, NECK PAIN, BACK PAIN OR OTHER INJURIES. Related Data Home Medications ?Medication ?Instructions ?Recorded ?Confirmed ?Last Taken ?Type No Home Medications 10/15/24 10/15/24 Unknown History Allergies Allergy/AdvReac Type Severity Reaction Status Date / Time No Known Allergies Allergy Verified 10/15/24 15:55 Review of Systems Review of Systems: All systems reviewed & are unremarkable except as noted in HPI and below PMFSH Social History Social History Smoking status: Never smoker Alcohol intake: current Alcohol use details: social Substance use type: does not use Gender identity (if verbalized by the patient): Male Exam Narrative: GENERAL APPEARANCE: WELL-DEVELOPED, WELL-NOURISHED SKIN: NORMAL COLOR HEAD: NORMOCEPHALIC, NONTRAUMATIC EYES: CLEAR CONJUNCTIVA ENT: OROPHARYNX NORMAL, EARS NORMAL, NOSE NORMAL NECK: SUPPLE, NONTENDER CHEST AND RESPIRATORY: AIRWAY PATENT, NO RESPIRATORY DISTRESS, NO ACCESSORY MUSCLE USE HEART: REGULAR RATE/RHYTHM ABDOMEN: SOFT, NONTENDER, NO ORGANOMEGALY, QUIET BOWEL SOUNDS VASCULAR: NORMAL PERIPHERAL PULSES, NORMAL CAPILLARY REFILL. MUSCULOSKELETAL: NORMAL RANGE OF MOTION, NONTENDER BACK NEUROLOGIC: ALERT AND ORIENTED ?3, DEPOSITION REPORTER IS NORMAL TESTED, NO GROSS MOTOR DEFICIT Course Vital Signs Vital signs: Vital Signs Temperature 36.3 C L 10/15/24 16:27 Pulse Rate 97 10/15/24 16:27 Respiratory Rate 18 10/15/24 16:27 Blood Pressure 132/76 10/15/24 16:27 Pulse Oximetry 100 10/15/24 16:27 Oxygen Delivery Room Air 10/15/24 16:27 Temperature 36.4 C 10/15/24 18:34 Pulse Rate 68 10/15/24 18:34 Respiratory Rate 16 10/15/24 18:34 Blood Pressure 129/78 10/15/24 18:34 Pulse Oximetry 100 10/15/24 18:34 Oxygen Delivery Room Air 10/15/24 16:27 MDM - Head Injury MDM Narrative Medical decision making narrative: DIFFERENTIAL DIAGNOSIS CONCUSSION WITHOUT LOSS OF CONSCIOUSNESS, MEMORY DISORDER FOR FEW HOURS, AT THE TIME OF DISCHARGE PATIENT IS BACK TO NORMAL 100%, POST CONCUSSION SYNDROME IS MY CONCERN. CT HEAD AND CT CERVICAL SPINE WITHOUT CONTRAST SHOWED NO ACUTE ABNORMALITY. THE PT WAS DISCHARGED TO HOME.THE PT,S CONDITION UPON DISCHARGE WAS FAIR,EDUCATION WAS PROVIDED TO THE PT IN REFERENCE TO THE FINAL IMPRESSION,DISCHARGE STUDY RESULTS,TREATMENT,PROGNOSIS AND NEED FOR FOLLOW UP . Differential Diagnosis Differential diagnosis: Likely other ( ABOVE) Imaging Data Radiologist's impression: Impressions Head CT 10/15/24 17:19 IMPRESSION: No acute intracranial findings. Cervical Spine CT 10/15/24 18:27 IMPRESSION: No acute osseous abnormality cervical spine. Critical Care Time Critical Care Time Critical Care Time: No Discharge Plan Discharge Clinical Impression: Concussion without loss of consciousness Patient Disposition: Home Condition: Stable Instructions: Concussion (ED), Post Concussion Syndrome (ED) Additional Instructions: RETURN IF SYMPTOMS ARE WORSENING , CALL YOUR FAMILY PHYSICIAN FOR APPOINTMENT, TAKE TYLENOL, IBUPROFEN NEEDED FOR ACHES AND PAIN, CONTINUE HOME MEDICATIONS. Patient Language: Lao Prescriptions: No Action No Home Medications Follow-up/Referrals: PHYSICIAN,HEALTH AND SAFETY ADVISOR [Primary Care Provider] - Ron Forde MD [Physician] - 10/18/24 Stand Alone Forms: Work/School Release IP
--- OUTSIDE RECORDS SUMMARY | 2024-10-15 20:52 | XMS_ITS | Continuity of Care Document ---
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 It does not include entries that were removed or entered in error. Problem Status Onset Date Problem Type Date of Resolution Comme nts Source ASSESSMENT, POST-DEPLOYMENT, DOCUMENTED ON [id number] Inactive 04/23/2020 Condition DoD Other dorsalgia Active 02/26/2020 Condition DoD Allergies, Adverse Reactions, Alerts Combined list of allergies from Department of Defense and Veterans Affairs facilities. It does not include entries that were removed or entered in error. Substance Category Reaction Severity Reaction type Status Date Reported Comments Source No Known Allergies Drug allergy (disorder) active 10/20/2017 [place] [address] Immunizations Combined list of available immunizations from the Department of Defense and Veterans Affairs facilities. 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 Status Comments Source Influenza, injectable, quadrivalent, preservative free 0 2021 [id number] SmithKline (SKB) complet ed Influenza , injectabl e, quadrival ent, preservat latasha free [facility] influenza, injectable, quadrivalent- pf 2020 [id number] 150 sanofi pasteur complet ed influenza , injectabl e, quadrival ent-pf 04/26/21 Given Ambulat ory Pharmac y Influenza, injectable, quadrivalent, preservative free 1 2020 [id number] 150 Sanofi Pasteur (PMC) complet ed Influenza , injectabl e, quadrival ent, preservat latasha free [facility] COVID Vaccine Moderna 2020 [id number] complet ed COVID Vaccine Moderna 09/03/20 Given Ambulat ory Pharmac y SARS-COV-2 (COVID-19) vaccine, mRNA, spike protein, LNP, preservative free, 100 mcg or 50 mcg dose 2 2020 [id number] 207 Moderna Vascular Dynamics, Inc. (MOD) complet ed SARS-COV- 2 (COVID-19 ) vaccine, mRNA, spike protein, LNP, preservat latasha free, 100 mcg or 50 mcg dose DoD COVID Vaccine Moderna 2020 zzLef t Arm [id number] complet ed COVID Vaccine Moderna 08/06/20 Given Ambulat ory Pharmac y SARS-COV-2 (COVID-19) vaccine, mRNA, spike protein, LNP, preservative free, 100 mcg or 50 mcg dose 1 2020 LIZBETH JEANICA [id number] 207 Moderna Vascular Dynamics, [employer]. (MOD) complet ed SARS-COV- 2 (COVID-19 ) vaccine, mRNA, spike protein, LNP, preservat latasha free, 100 mcg or 50 mcg dose DoD influenza virus vaccine, inactivated 2019 [id number] Seqirus complet ed influenza virus vaccine, inactivat ed 03/28/20 Given Ambulat ory Pharmac y Influenza, injectable, Madin Teena Canine Kidney, quadrivalent with preservative 0 2019 [id number] 186 Seqirus (SEQ) comple t ed Influenza , injectabl e, Madin Teena Canine Kidney, quadrival ent with preservat latasha DoD anthrax vaccine 2019 [id number] 24 Emergent Biosolutions complet ed anthrax vaccine 12/06/19 Given Ambulat ory Pharmac y Human Papillomaviru s 9-valent vaccine 2019 [id number] 165 Merck & Company Inc complet ed Human Papilloma virus 9-valent vaccine 12/06/19 Given Ambulat ory Pharmac y anthrax vaccine 2 2019 [id number] 24 Emergent [employer] ([facility]) complet ed anthrax vaccine DoD Human Papillomaviru s 9-valent vaccine 1 2019 [id number] 165 Merck (MSD) complet ed Human Papilloma virus 9-valent vaccine DoD typhoid Vi capsular polysaccharid e vac 2019 [id number] 101 sanofi pasteur complet ed typhoid Vi capsular polysacch aride vac 10/27/19 Given Ambulat ory Pharmac y anthrax vaccine 2019 [id number] 24 Emergent Biosolutions complet ed anthrax vaccine 10/27/19 Given Ambulat ory Pharmac y anthrax vaccine 1 2019 [id number] 24 Emergent [employer] (MIP) complet ed anthrax vaccine DoD typhoid Vi capsular polysaccharid e vaccine 1 2019 [id number] 101 Sanofi Pasteur (PMC) complet ed typhoid Vi capsular polysacch aride vaccine DoD influenza, injectable, quadrivalent 2018 [id number] 158 Seqirus complet ed influenza , [...] influenza, injectable, quadrivalent, contains preservative 1 2018 [id number] 982 158 Seqirus (SEQ) complet ed influenza [...] ory Pharmac y adenovirus vaccine, live 2017 [id number] 143 Teva Pharmaceutica ls complet ed adenoviru s vaccine, live 10/13/17 Given Ambulat ory Pharmac y meningococcal A,C,Y,W-135 (MCV4P) 2017 [id number] 114 sanofi pasteur complet ed meningoco ccal A,C,Y,W-1 35 (MCV4P) 10/13/17 Given Ambulat ory Pharmac y tetanus, diphtheria, acellular pertu is 2017 [id number] 115 Global Industry[employer] mn complet ed tetanus, diphtheri a, acellular pertussis 10/13/17 Given Ambulat ory Pharmac y influenza virus vaccine, inactivated 2017 [id number] 88 Seqirus complet ed influenza virus vaccine, inactivat ed 10/13/17 Given Ambulat ory Pharmac y poliovirus vaccine, inactivated 1 2017 [id number] 10 Sanofi Pasteur (PMC) complet ed polioviru s vaccine, inactivat ed DoD meningococcal polysaccharid e (groups A, C, Y and W-135) diphtheria toxoid conjugate vaccine (MCV4P) 1 2017 [id number] 114 Sanofi Pasteur (PMC) complet ed meningoco ccal polysacch aride (groups A, C, Y and W-135) diphtheri a toxoid conjugate vaccine (MCV4P) DoD tetanus toxoid, reduced diphtheria toxoid, and acellular pertu is vaccine, adsorbed 1 2017 [id number] 115 [employer] (SKB) complet ed tetanus toxoid, reduced diphtheri a toxoid, and acellular pertussis vaccine, adsorbed DoD Adenovirus, type 4 and type 7, live, oral 1 2017 [id number] [place] [address] ([facility]) complet ed Adenoviru s, type 4 and type 7, live, oral DoD Influenza, injectable, Madin Teena Canine Kidney, quadrivalent with preservative 1 2017 [id number] 186 Seqirus (SEQ) comple t ed Influenza , injectabl e, Madin [place] Canine Kidney, quadrival ent with preservat latasha [...] s HIV diagnostic algorithm. Refer to [facility] Lab Guide for additional information : [email or web address] x Testing performed by [...] ADM Date DC Date Status Disposition [place] [address](Hea ring Conservat ion, BMT) OUTPATIENT [id number] ANNY SHELTON E 10/18 Released w/o Limitations [facility] [place] [address](H earing Conserv ation, BMT) [place] [facility] [address](Tra [facility]) OUTPATIENT [id number] Notes Entered by: Rachael CADENA 20 Oct 2017 1052 ------- ------- ------- ------- -- Strep Prophyl RL Gonzalez 10/20 Released w/o Limitations [facility] [place] [address](T [facility] d) [facility]) OUTPATIENT [id number] Initial PHA LIVAN BRITO 04/28 Released w/o Limitations [address] [place] [address])([facility]) [address] [place] [address])([facility]) OUTPATIENT [id number] Notes Entered by: HO BLAND 27 Oct 2019 1455 ------- ------- ------- ------- -- HO GROVES 10/26 Released w/o Limitations [address] [place] [address])(06 17 [facility]) [address] [place] [address])(Yi demic Virus) OUTPATIENT [id number] SATHYA WILSON 12/27 Released w/o Limitations [address] [place] [address])(P andemic Virus) Theater Facility OUTPATIENT [id number] Theater Provider 02/25 Released w/o Limitations [facility] OUTPATIENT [id number] Theater Provider 02/25 Released w/o Limitations [facility] OUTPATIENT [id number] Theater Provider 04/23 Released w/o Limitations Theater Facilit [facility] [address] [place] [address])([facility]) TELE CONSULT [id number] Notes Entered by: MARLO JEAN 14 May 2020 1235 ------- ------- ------- ------- -- FRANK Fields 05/14 Other Not Elsewhere Classified [address] [place] [address])(1 th [facility]) [address] [place] [address])(Aud iology Procedure s) OUTPATIENT [id number] Notes Entered by: Jennie LANDAVERDE 28 May 2020 0910 ------- ------- ------- ------- -- ARLEY EVANS 05/28 Released w/o Limitations [address] [place] [address])(A udiolog y Procedu res) [address] [place] [address])(War rior Op Med Cln Tm A Ad) OUTPATIENT [id number] SHPE [id number] EBONY ASHER 06/03 Released w/o Limitations [address] [place] [address])(W arrior Op Med Cln Tm A Ad) [address] [place] [address])(126 [facility]) OUTPATIENT [id number] Notes Entered by: Elias MAHARAJ 06 Aug 2020 1038 ------- ------- ------- ------- -- HECTOR Tenorio 08/06 Released w/o Limitations [address] [place] [address])(06 17 [facility]) [address] [place] [address])(126 [facility]) OUTPATIENT [id number] Notes Entered by: Elias MAHARAJ 11 Aug 2020 1112 ------- ------- ------- ------- -- phaq and HECTOR Tenorio 08/11 Released w/o Limitations [address] [place] [address])(06 17 [facility]) [address] [place] [address])([facility]) OUTPATIENT [id number] 7 AUDIO AM - BUZZ DORADO 07/27 Released w/o Limitations [address] [place] [address] [facility] ([facility]06 17 Primary Care [facility]) [address] [place] [address] Alvino [facility])(126 th [facility]) OUTPATIENT [id number] Notes Entered by: Elias MAHARAJ 27 Jul 2021 1721 ------- ------- ------- ------- -- HECTOR Campbell 07/27 Released w/o Limitations [address] [place] [address] Al[facility] ([facility])(06 17 [facility]) [address] [place] [address] Al[facility]ino [facility])([facility]) OUTPATIENT [id number] Notes Entered by: Elias MAHARAJ 30 Aug 2022 1618 ------- ------- ------- ------- -- phaq HECTOR MAHARAJ 08/30 Released w/o Limitations [address] [place] [address] Alvino [facility])(06 17 Primary [facility]) 8224R-126 G Outside Documentat ion Only [id number] 02/02 Discharge Disposition: Home or Self Care 8224R-1 26 MARINE 8224R-126 MDG Outside Documentat ion Only [id number] 02/02 Discharge Disposition: Home or Self Care 8224R-1 26 MARINE 8224R-126 MDG Outpatient [id number] HECTOR PHIPPS 06/12 Discharge Disposition: Home or Self Care 8224R-1 26 G 8224R-126 MDG Outpatient [id number] HECTOR PHIPPS 07/21 Discharge Disposition: Home or Self Care 8224R-1 26 G 8224R-126 MDG Clinic [id number] HECTOR PHIPPS 08/07 Discharge Disposition: Home or Self Care 8224R-1 26 MDG Procedures Combined list of: 1) Procedures from Department of Veterans Affairs facilities going [facility], not all VA non-surgical procedures are included; 2) All procedures from the Department of Defense facilities. Procedure Procedure Type Code Date Perfomer Comments [facility] e PURE TONE AUDIOMETRY (THRESHOLD), AUTOMATED; AIR ONLY 2 DoD WAIVER SERVICES; NOT OTHERWISE SPECIFIED (NOS) 1 [facility] PSYCHOLOGICAL OR NEUROPSYCHOLOGICAL TEST ADMINISTRATION, WITH SINGLE AUTOMATED, STANDARDIZED INSTRUMENT VIA ELECTRONIC PLATFORM, WITH AUTOMATED RESULT ONLY 0 [facility] No data available for this section Ambulatory Pharmacy Social History Combined list of available smoking, tobacco, and other social history from Department of Defense and Veterans Affairs facilities. Social History Type Response Date Comment [facility] e Sex Representation Male (finding) 08/28/2021 Un known Organization This section is an empty social history section. [facility] Sexual Orientation Ambula tory Pharmacy Gender identity Ambulator y Pharmacy Assessment and Plan Combined list of future care activities from Department of Defense and Veterans Affairs facilities (e.g., assessment and plan notes, appointments, orders, and referrals). Additional future care activities may be listed in the Plan of Care section. 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 Patient s PHAQ responses suggest Routine i tems requiring action. Retention Waiver: No Profile: No Medications: N one reported Medication List Active Medications No Active Medications Found Medications Inactivated in the Last 72 Hours No medications found. 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 Braze Operator PHAQ review note: SM reports he is in excellent health with no pain scale, no medications and no new medical history and drinks 1-2 per day monthly or less. Report complete. PHAQ ready for PCM review and signature. 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 Patient s PHAQ responses suggest Priority items requiring immediate action. Member is PRIORITY for f inancial, family/relationship, sleep Retention Waiver: N o Profile: N o Medications: Medication List Active Medications No Active Medications Found Medications Inactivated in the Last 72 Hours No medications found. 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 N O VA Disability Rating: N o I f, Yes please update below. roof technician PHAQ review note: PRIORITY PHAQ completed. [...] 10, 2023 09:41 CDT PHAQ Completed in [facility], [id number] c opied below. Diagnosis is [id number] Medication reconciliation was accomplished. IMR requirements checked in [facility] (all GREEN). General c ounseling performed i n chart review. Denies SI/HI. All questions answered. Member has no n on emergent positive responses on P MONIQUE. I t has not inhibited member from performing their duties. Member is assumed fit for duty. Denies any other acute or chronic health concerns currently. Mental health resources to include the mental health clinic, [facility]OP, Election Clerk, and One Source discussed with patient v ia review. Recommend f/u with PCM for any new or ongoing m edical concerns. Member can: 1) deploy 2) perform the duties of the assigned [employer], 3) meet retention medical standards, 4) complete the fitness assessment (FA), no h/o airborne exposure to qualify for X08.8 COPY OF PHAQ2 [id number]: A NNUAL PERIODIC HEALTH ASSESSMENT I. GLOBAL RISK MANAGEMENT DIRECTOR INFORMATION AND DEMOGRAPHICS (SMI) 1. Last Name: LINDA 2. First Name: ROSITA 3. Middle Name: AZAR 4. Assessment Date: 5. : 6. Age: 23 7. Gender: M 8. DoD ID Number: [id number] 9. Service Branch: [employer] 10. 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 Unit Name: [address] [employer] 14. Duty Station/Location: [place] 15. C: [id number] 16. Is this your first Periodic Health Assessment (PHA)?: N 17. Are you enrolled in a secure messaging system with your health care provider?: 18. Current contact information: Preferred Method: Email 1 DSN: Day Time Phone: [phone] Night Time Phone: [phone] Email 1: [email or web address] Email 2: Address: [address] City: [place] State: [place] Zip Code: [id number] 19. Point of contact who can always reach you: Name: Lexi Mixon Phone 1: [phone] Phone 2: EMAIL: Address: [address] City: [place] State: [place] Zip Code: [address] II. DEPLOYMENT INFORMATION (DEP) 1. [ 1 [...] easily startled? 6. d. [ No ] [place] numb or detached from others, activities, or your surroundings? 6. e. [ Not answered ] [place] guilt or unable to stop blaming yourself [...] like to schedule a visit with a belly dump driver, mental health care provider, or a community [...] 8. [ None ] What prescriptions or hnht-dmf-gkcoazo medications are you CURRENTLY taking for health [...] had a cholesterol check by a health care partner within the PAST 5 YEARS? 13.a. In [...] discuss any health concerns? XI. SEPARATION AND [facility] 1. [ No ] Are you planning to separate or retire within the next year from Active Duty or [place] Duty (activated for greater than 30 continuous days) OR do you intend to file a claim for disability compensation with the Veterans Benefits Administration? PART B. RECORD REVIEW AND RECOMMENDATIONS I. RECORD REVIEWER INFORMATION 1. Last Name: DARIEN 2. First Name: PRECIOUS 3. Middle Name: Kathi 4. Service Branch: [employer] 5. 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 EMAIL: [email or web address] 8. Facility: [facility] 9. Unit: [facility] 10. Address: [address] [place] [address]. State: [facility]. Zip Code: [address] 13. 14. Date Record Review: II. MEDICAL SCREENING 1. 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 [ 5 feet 10 inches Date: ] mathematics faculty member's most recently documented height 3. [ 188 pounds Date: ] mathematics faculty member's most recently documented weight 4. [ 101/58 Date: ] mathematics faculty member's most recently documented blood pressure reading 5. [ No ] Does the mathematics faculty member have a history of abnormal blood pressure since their last PHA? 6. [ Yes ] Does the mathematics faculty member have a laboratory test of sickle cell trait documented in their permanent medical record? 7. [ No Cholesterol Test Documented ] What is the date of the mathematics faculty member's most recently documented cholesterol test? 9. [ Protein Supplements Multi-vitamins Vitamin D ] List of mathematics faculty member's active medications listed in their permanent medical record 10. [ No ] Is there a discrepancy between the active medication record review and the mathematics faculty member's self-reported list of medications? 11. [ No Outside Care Documented ] List documented significant care the mathematics faculty member has received since their last PHA from a provider OUTSIDE the Health System 12. [ No ] Is there a discrepancy between the mathematics faculty member's list of OUTSIDE care (from OT5), and the OUTSIDE care found in the record? 13. [ No Inside Care Documented ] List documented significant care the mathematics faculty member has received since their last PHA from a provider INSIDE the Health System 15. [ Not Answered ] Confirm that vaccine exemptions are listed in the medical record for each vaccine listed III. OCCUPATION-SPECIFIC EXAMINATIONS 2. [ ] When was the mathematics faculty member's most recently documented evaluation? IV. FAMILY HISTORY AND LIFESTYLE 1. [ Yes ] Does the CE2922 reflect the mathematics faculty member's reported family history? . DEPLOYMENT-RELATED HEALTH ASSESSMENTS 2. [ No ] Has the mathematics faculty member completed the Pre-Deployment Health Assessment (DD Form 2795 for their upcoming deployment? VII. INDIVIDUAL MEDICAL READINESS 1. [ No ] Does the mathematics faculty member have an Assignment Limitation Code C? 3. [ Classification: 1 ] Most recently documented dental exam 4. [ Yes ] Is the mathematics faculty member current on all required immunizations in the immunization tracking system? 6. Does the mathematics faculty member have the following laboratory tests documented [...] need to be forwarded to the Health Clinical Academic Allergist completing PART C: PRIORITY PHAQ completed. Member [...] 3. Middle Name: Albin 4. Service Branch: [employer] 5. Status: Traditional [employer] health care 6. 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 EMAIL: [email or web address] 8. Facility: [address] [facility] 9. Unit: [facility] 10. Address: [address] [place] [address] 11. State: [place] 12. Zip Code: [address] 13. Phone: [phone] 14. Date HCP Review initiated: 1. Member [...] 3. Middle Name: Albin 4. Service Branch: [employer] 5. Status: Traditional [facility] 6. 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 EMAIL: [email or web address] 8. Facility: [facility] 9. Unit: [facility] 10. Address: [address] [place] [address] 11. State: [place] 12. Zip Code: [address] 13. Phone: [phone] 14. Date HCP Review initiated: IV. PERIODIC HEALTH ASSESSMENT PROVIDER RECOMMENDATIONS and REFERRALS 1. Provider concerns with this assessment: No issues or concerns identified V. SUMMARY AND COMMENTS 1. Additional information summarizing findings during the mathematics faculty member assessment: 2. Provider Comments: . INDIVIDUAL MEDICAL READINESS DISPOSITION DETERMINATION ARASH: Ready DEN: Ready IMM: Ready LAB: Ready ME: Ready IMR Status: Fully Medically Ready VII. 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 Patient s PHAQ responses suggest Priority items requiring immediate action. Retention Waiver: N o Profile: N o Medications: Medication List Active Medications No Active Medications Found Medications Inactivated in the Last 72 Hours No medications found. 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 N O VA Disability Rating: N o I f, Yes please update below. roof technician PHAQ review note: PRIORITY PHAQ completed. [...] PHAQ ready for PCM review and signature. 10/16/2024 8224R-126 [facility] Functional Status Combined list of recent functional and cognitive assessments recorded at Department of Defense and Veterans Affairs (VA).VA Functional Electra Measurement (FIM) Scale: 1 = Total Assistance (Subject = 0% +), 2 = Maximal Assistance (Subject = 25% +), 3 = Moderate Assistance (Subject = 50% +), 4 = Minimal Assistance (Subject = 75% +), 5 = Supervision, 6 = Modified Electra (Device), 7 = Complete Electra (Timely, Safely). Assessment Date/Time Source Assessment Type Assessment Skill Assessment Score Assessment Details No data available for this section
[2024-10-15 21:01] VITALS: BP 120/76; PULSE 68; RESP 16; TEMP 36.4; O2SAT 97
== END 2024-10-15 21:06 | disposition home or self-care (01) ==
PROVIDERS: Emergency Provider Emergency Medicine
DX: S06.0X0A Concussion without loss of consciousness, initial encounter (principal); W17.89XA Other fall from one level to another, initial encounter
CPT/HCPCS: 70450; 72125; 99284